=== PATIENT | female | born 1995 | race African-American/Black ===

== ENCOUNTER 2017-07-30 15:32 | Day surgery (SDC) | payer OTHER, BC ==
[~2017-07-30] VITALS: Ht 160 cm; Wt 78.6 kg
[2017-07-30] VITALS (9 sets, daily range): BP systolic 100–126; BP diastolic 59–82; PULSE 55–90; TEMP 97.4–98.3
[2017-07-30] MEDS ORDERED: PERCOCET 325 MG1 TA2 PO (16:18)
[2017-07-30] MEDS ORDERED: MOTRIN 800800 MG/TAB PO (16:18)
[2017-07-30 16:22] LABS: BASO % 0.5 % (0.0-2.0); EOS # 0.1 (0.0-0.7); EOS % 0.8 % (0-4.0); GRAN # 4.2 (1.4-6.5); HEMOGLOBIN 12.4 g/dl (12.5-16.0); LYMPH # 1.8 (1.2-3.4); LYMPH % 27.9 % (20.0-51.0); MEAN CELL VOLUME 78 fl (80.0-100.0); MEAN CORPUSCULAR HEMOGLOBIN 27 pg (27.0-31.0); MEAN CORPUSCULAR HGB CONC 34 g/dl (33.0-37.0); MEAN PLATELET VOLUME 8.6 fl (7.4-10.4); MONO # 0.4 (0.1-0.6); MONO % 5.6 % (1.7-9.3); PLATELET COUNT 290 K/mm3 (130-400); RED BLOOD COUNT 4.67 M/mm3 (4.10-5.30); REDCELL DISTRIBUTION WIDTH-CV 13.3 % (11.5-14.5)
[2017-07-30 16:23] LABS: HEMATOCRIT 36.4 % (37.0-47.0)
[2017-07-31] VITALS: BP 117/67; PULSE 74; TEMP 98.5
[2017-07-31 07:39] VITALS: BP 96/55; PULSE 74; TEMP 98.4
== END 2017-07-31 10:00 | disposition home or self-care (01) ==
LOC: SDCO 15:32 → OB 18:30 → SDCO 18:30 → OB 07-31 10:00 → SDCO 07-31 10:00
PROVIDERS: Obstetrics & Gynecology
DX: O00.101 Right tubal pregnancy without intrauterine pregnancy (principal); Z3A.16 16 weeks gestation of pregnancy; N94.5 Secondary dysmenorrhea; D50.9 Iron deficiency anemia, unspecified; D25.9 Leiomyoma of uterus, unspecified; N92.0 Excessive and frequent menstruation with regular cycle; E66.3 Overweight
CPT/HCPCS: OP; J1100; J1885; J2405; J2550; J2704; J3010; J7120

== ENCOUNTER 2018-07-27 10:51 | Outpatient (CLI) | payer BC ==
[~2018-07-27] VITALS: Ht 160 cm; Wt 85.3 kg
[~2018-07-27 10:51] MED LIST: MOTRIN 800800 MG/TAB PO; PERCOCET 325 MG1 TA2 PO
[2018-07-27] MEDS ORDERED: CONCEPT DHA1 CAP PO (11:09)
== END 2018-07-27 14:30 ==
LOC: LDRO 10:51
DX: O76 Abnormality in fetal heart rate and rhythm complicating labor and delivery (principal); Z3A.34 34 weeks gestation of pregnancy
CPT/HCPCS: J7120

== ENCOUNTER 2018-08-29 06:46 | Inpatient (IN) | payer BC ==
[2018-08-29] VITALS (55 sets, daily range): BP systolic 94–153; BP diastolic 51–99; PULSE 55–98; TEMP 97.5–98.6
[~2018-08-29] VITALS: Ht 160.1 cm; Wt 86.8 kg
[~2018-08-29 06:46] MED LIST changes: +CONCEPT DHA1 CAP PO
--- NOTE | 2018-08-29 07:30 | NUR ---
Pt arrives on unit ambulatory with FOB for induction of labor. Changed into clean gown. EFM and toco applied. VSS. IV started in LH. Labs drawn. LR infusing. Admission assessment completed. Consents signed. Pt updated on plan of care. Safety reviewed. Call light within reach. No questions or concerns at this time.
[2018-08-29 08:17] LABS: BASO % 0.2 % (0.0-2.0); EOS % 0.5 % (0-4.0); GRAN # 6.2 (1.4-6.5); GRAN % 71.7 % (42.2-75.2); HEMOGLOBIN 11.5 g/dl (12.5-16.0); LYMPH # 1.7 (1.2-3.4); LYMPH % 19.8 % (20.0-51.0); MEAN CELL VOLUME 75 fl (80.0-100.0); MEAN CORPUSCULAR HEMOGLOBIN 25 pg (27.0-31.0); MEAN CORPUSCULAR HGB CONC 34 g/dl (33.0-37.0); MEAN PLATELET VOLUME 8.8 fl (7.4-10.4); MONO # 0.6 (0.1-0.6); MONO % 7.2 % (1.7-9.3); PLATELET COUNT 313 K/mm3 (130-400); RED BLOOD COUNT 4.52 M/mm3 (4.10-5.30); REDCELL DISTRIBUTION WIDTH-CV 14.2 % (11.5-14.5)
[2018-08-29 08:19] LABS: HEMATOCRIT 33.7 % (37.0-47.0)
--- NOTE | 2018-08-29 08:30 | NUR ---
Dr. Ruffin on unit. Reviews FHR strip. Orders to start pitocin induction per protocol. AROM attempted at 0833 with scant fluid. SVE per provider /. Pericare performed. Pt updated on plan of care. Safety reviewed. Call light within reach. No questions or concerns at this time.
--- NOTE | 2018-08-29 11:00 | NUR ---
Pt sitting upright for epidural placement. Difficulty tracing FHR due to maternal position. RN at bedside adjusting monitors. FHR audible. 1107-Single shot administered by Cheryl Martinez CRNA. No adverse effects noted. See anesthesia record. Pt repositioned WL. FHR tracing. Pt updated on plan of care. Safety reviewed. No questions or concerns at this time.
--- NOTE | 2018-08-29 11:35 | NUR ---
Late decelerations noted. LR bolus infusing. Pt repositioned RL. Decline in BP. 1141-Ephedrine 10mg given IV. Dr. Ruffin at bedside. SVE per provider /2. Forebag of water broke. Pericare provided. No new orders at this time.
--- NOTE | 2018-08-29 12:00 | NUR ---
This RN at bedside. Pt repositioned LL. LR bolus infusing. O2 applied via simple mask at 10L. Decline in BP. Ephedrine 10mg given IV. FHR recovers and returns to baseline with no decelerations.
--- NOTE | 2018-08-29 12:39 | NUR ---
Dr. Ruffin notified of recurrent late decelerations and interuterine rescucitation efforts. Pitocin infusion paused. Orders to restart pitocin.
--- NOTE | 2018-08-29 13:00 | NUR ---
Dr. Ruffin notified of recurrent decelerations. Orders to decrease pitocin infusion to 4mU.
--- NOTE | 2018-08-29 14:55 | NUR ---
Dr. Ruffin at bedside with variable decelerations. SVE per provider /-2. Pt repositioned sitting upright.
--- NOTE | 2018-08-29 16:02 | NUR ---
Dr. Ruffin continues to review strip. No new orders at this time.
[2018-08-29] MEDS ORDERED: PERCOCET 325 MG1 TA2 PO (16:03)
[2018-08-29] MEDS ORDERED: MOTRIN 800800 MG/TAB PO (16:03)
--- NOTE | 2018-08-29 16:50 | NUR ---
SVE per provider /2. Dr. Ruffin on unit. Reviews FHR strip. No new orders at this time.
--- NOTE | 2018-08-29 17:15 | NUR ---
SVE per Dr. Ruffin unchanged. Orders to position pt sitting upright and increase pitocin infusion to 22mU.
--- NOTE | 2018-08-29 18:08 | NUR ---
Dr. Ruffin at bedside. SVE unchanged. Orders per provider to increase pitocin to 24mU.
--- NOTE | 2018-08-29 18:20 | NUR ---
DR HALL HERE-SVE NO CERVICAL CHANGE . DELIVERY DISCUSSED WITH PT AND FOB BY DR HALL.CHARGE NURSE NOTIFIED.Ivana MONTGOMERY NOTIFIED. ABD SHANNON AND PRE SCRUB, 183 TO OR PER BED. FOB TO OBSERVE
[2018-08-30 04:00] VITALS: BP 107/61; PULSE 70; TEMP 97.3
[2018-08-30 07:17] LABS: HEMATOCRIT 28.8 % (37.0-47.0); HEMOGLOBIN 9.7 g/dl (12.5-16.0)
[2018-08-30 08:20] VITALS: BP 114/66; PULSE 72; TEMP 97.6
--- NOTE | 2018-08-30 10:58 | NUR ---
Initial visit; Parents thanked Service Operations Manager for offering congratulations and God's blessings for the of their daughter and for thanking them for choosing [facility].
[2018-08-30 17:27] VITALS: BP 121/65; PULSE 82; TEMP 97.7
[2018-08-30 20:25] VITALS: BP 108/64; PULSE 84; TEMP 98.7
[2018-08-31 08:40] VITALS: BP 109/61; PULSE 79; TEMP 98.3
[2018-08-31 15:15] VITALS: BP 110/66; PULSE 79; TEMP 97.9
[2018-08-31 20:45] VITALS: BP 117/66; PULSE 71; TEMP 97.6
[2018-09-01 07:30] VITALS: BP 124/73; PULSE 74; TEMP 98.7
== END 2018-09-01 13:10 | disposition home or self-care (01) | DRG 788 ==
LOC: OB 06:46 → LDR 06:48 → OB 20:15
PROVIDERS: ADMIT Obstetrics & Gynecology
PROC: 10D00Z1 Extraction of Products of Conception, Low, Open Approach (ICD-10-PCS; principal; 2018-08-29)
PROC: 10907ZC Drainage of Amniotic Fluid, Therapeutic from Products of Conception, Via Natural or Artificial Opening (ICD-10-PCS; 2018-08-29)
PROC: 3E033VJ Introduction of Other Hormone into Peripheral Vein, Percutaneous Approach (ICD-10-PCS; 2018-08-29)
DX: O36.5930 Maternal care for other known or suspected poor fetal growth, third trimester, not applicable or unspecified (principal); O76 Abnormality in fetal heart rate and rhythm complicating labor and delivery; Z3A.39 39 weeks gestation of pregnancy; Z37.0 Single live birth; D57.3 Sickle-cell trait; O99.02 Anemia complicating childbirth; D50.9 Iron deficiency anemia, unspecified; O34.13 Maternal care for benign tumor of corpus uteri, third trimester
CPT/HCPCS: J0690; J1885; J2175; J2370; J2405; J2590; J2795; J3010; J7120

== ENCOUNTER 2024-04-26 19:10 | Outpatient (CLI) | payer BC ==
[~2024-04-26] VITALS: Ht 160 cm; Wt 92.3 kg
[~2024-04-26 19:10] MED LIST changes: +ZYRTEC 10MG10 MG PO
--- NOTE | 2024-04-26 19:18 | NUR ---
Presents to L&D, ambulatory, with c/o feeling her underwear wet at 1400. Denies any further leaking of fluid. States, "It was just the one time." Reports positive movement. Denies any intercourse in last 48 hours. SVE dry. No fluid return when head pushed up. Note head balottable. Amnitrace negative. Denies contractions or vaginal bleeding.
[2024-04-26 19:30] VITALS: BP 115/74; PULSE 87; TEMP 98.9
[2024-04-26 19:43] VITALS: BP 106/64; PULSE 85
[2024-04-26] MEDS ORDERED: LR 1,000 ML IV PRN (19:45)
[2024-05-01] MEDS ORDERED: PERCOCET 325 MG1 TA2 PO (07:19)
== END 2024-04-26 19:55 | disposition home or self-care (01) ==
LOC: LDRO 19:10 → LDR 19:18 → LDRO 19:55
DX: Z34.93 Encounter for supervision of normal pregnancy, unspecified, third trimester (principal); Z3A.38 38 weeks gestation of pregnancy
CPT/HCPCS: OP

== ENCOUNTER 2024-04-28 01:08 | Outpatient (CLI) | payer BC ==
[~2024-04-28] VITALS: Ht 160 cm; Wt 92.3 kg
--- NOTE | 2024-04-28 01:20 | NUR ---
G4L2. 39.1. Ambulatory to LDR 5 with spouse. Clean gown on. EFM and TOCO explained and applied. Pt states contractions woke her up at 2230 tonight and are about 5 mins apart. Denies leaking of fluids or vaginal bleeding. Reports good movement. Plan of care explained. 0133: SVE completed. Pt reports that her contractions are not has intense as they were at home and does not want to have a recheck. Plan of care explained. 0241: called and updated on pt's status. See physican notification. 0255: Discharge education given to pt who verbalizes her understanding and questions answered. Pt ambulatory off unit and home with spouse.
--- NOTE | 2024-04-28 01:58 | NUR ---
Late deceleration noted. Pt repositioned to right lateral position
[2024-04-28 02:00] VITALS: BP 115/66; PULSE 70; TEMP 97.9
[2024-04-28 02:30] VITALS: PULSE 76
[2024-04-28 02:38] VITALS: PULSE 77
[2024-04-28] MEDS ORDERED: LR 1,000 ML IV PRN (03:00)
[2024-05-01] MEDS ORDERED: PERCOCET 325 MG1 TA2 PO (07:19)
== END 2024-04-28 02:55 | disposition home or self-care (01) ==
LOC: LDRO 01:08
DX: Z34.90 Encounter for supervision of normal pregnancy, unspecified, unspecified trimester (principal)